=== PATIENT | female | born 1950 | race Caucasian/White ===

== ENCOUNTER 2025-02-13 21:52 | Emergency (ER) | payer MEDICARE ==
[~2025-02-13] VITALS: Ht 167.6 cm; Wt 58.9 kg
[~2025-02-13 21:52] MED LIST: ANUCORT-HC25 MG RE; ATENOLOL25 MG PO; ATENOLOL50 MG; FINACEA15 % EX; GENTAMICIN0.31 OP; LEVOTHROID100 MCG; METROGEL1 % EX; SYNTHROID100 MCG PO; TET/DIP TOX1 ML IM; TOBRAMYCIN OP; TOBRAMYCIN0.3 % OP
[2025-02-14 00:08] VITALS: BP 148/72
== END 2025-02-14 00:12 | disposition home or self-care (01) ==
LOC: ED 21:52
DX: R68.2 Dry mouth, unspecified (principal); I10 Essential (primary) hypertension; E03.9 Hypothyroidism, unspecified